=== PATIENT | female | born 1975 | race Two or more races ===

== ENCOUNTER 2023-08-06 10:36 | Inpatient (IN) | payer OTHER ==
[~2023-08-06] VITALS: Ht 172.7 cm; Wt 62.6 kg
[2023-08-06] MEDS ORDERED: KETOROLAC TROMETHAMINE 30 MG VIAL ONE (12:54)
[2023-08-06] MEDS ORDERED: METHYLPREDNISOLONE SOD SUCC 125 MG VIAL ONE (12:54)
[2023-08-06] MEDS ORDERED: KETOROLAC TROMETHAMINE 30 MG VIAL IV ONE (13:00)
[2023-08-06] MEDS ORDERED: METHYLPREDNISOLONE SOD SUCC 125 MG VIAL IV ONE (13:00)
[2023-08-06 13:16] LABS: HEMATOCRIT 29.8 % (36.0-45.00); HEMOGLOBIN 9.9 g/dL (12.0-15.00); MEAN CELL VOLUME 74.7 fL (80.00-100.00); MEAN CORPUSCULAR HEMOGLOBIN 24.9 pg (27.00-32.0); MEAN CORPUSCULAR HGB CONC 33.3 g/dl (32.0-36.0); PLATELET COUNT 259 K/uL (150-450); RED BLOOD COUNT 3.99 M/uL (4.00-6.00); RED CELL DISTRIBUTION WIDTH 17.7 % (11.5-14.5)
[2023-08-06 13:35] LABS: INR 1.09; PARTIAL THROMBOPLASTIN TIME 25.1 SECONDS (22.0-34.0); PROTHROMBIN TIME 11.4 SECONDS (9.0-11.5)
[2023-08-06 13:41] LABS: ALBUMIN 3.4 gm/dL (3.4-5.0); BILIRUBIN TOTAL 0.51 mg/dL (0.3-1.2); CALCIUM 9.3 mg/dL (8.5-10.1); CREATININE SERUM 0.78 mg/dL (0.55-1.02); GFR 79.87; GLOBULINA 3.4 G/DL (2.4-3.5); POTASSIUM 3.84 mEq/L (3.5-5.1); TOTAL PROTEIN 6.8 gm/dL (6.4-8.2)
[2023-08-06] MEDS ORDERED: MORPHINE SULFATE 4 MG/ML VIAL IV PRN (14:45)
[2023-08-06] MEDS ORDERED: ONDANSETRON HCL 4 MG in 0.9 % SODIUM CHLORIDE 50 ML IV PRN (19:45)
[2023-08-06] MEDS ORDERED: 0.9 % SODIUM CHLORIDE 1,000 ML IV SCH (19:45)
[2023-08-06] MEDS ORDERED: ACETAMINOPHEN 500 MG GEL..CAP PO PRN (19:45)
[2023-08-06] MEDS ORDERED: MORPHINE SULFATE 2 MG/ML CARTRIDGE IV SCH (20:00)
[2023-08-06] MEDS ORDERED: MORPHINE SULFATE 4 MG/ML CARTRIDGE IV PRN (20:00)
[2023-08-06 21:31] LABS: PH,URINE 5.5 (5.0-8.0); URINE APPEARANCE Cloudy; URINE BILIRRUBIN Negative (NEGATIVE); URINE BLOOD Moderate; URINE COLOR Yellow; URINE GLUCOSE Negative (NEGATIVE); URINE LEUKOCYTE Negative; URINE NITRATE Negative; URINE PROTEIN Negative (NEGATIVE); URINE UROBILINOGEN 0.2 E.U./dl
[2023-08-06 21:34] LABS: URINE BACTERIA 31.4 uL (0.0-1933); URINE EPITHELIAL CELLS 13.8 uL (0.0-38.8); URINE RBC 54.2 uL (0.0-20.8)
[2023-08-06 21:53] LABS: URINE WBC 1.6 uL (0.0-23.2)
[2023-08-07] MEDS ORDERED: FAMOTIDINE/PF 20 MG in 0.9 % SODIUM CHLORIDE 8 ML IV PUSH SCH (09:00)
[2023-08-07] MEDS ORDERED: METRONIDAZOLE/SODIUM CHLORIDE 500 MG/100 ML PIGGYBACK IV ONE (10:18)
[2023-08-07] MEDS ORDERED: CEFTRIAXONE SODIUM 2,000 MG VIAL ONE (10:18)
[2023-08-07] MEDS ORDERED: LIDOCAINE HCL 1%/EPINEPHRINE 20ML VIAL IJ ONE (13:16)
[2023-08-07] MEDS ORDERED: DIBUCAINE 30 GM TUBE ONE (13:16)
[2023-08-07] MEDS ORDERED: BUPIVACAINE HCL/MPF 0.5% 30ML VIAL ONE (13:16)
[2023-08-07] MEDS ORDERED: HEMOSTATIC MATRIX 1 KIT KIT TOP ONE (13:17)
[2023-08-07] MEDS ORDERED: DIPHENHYDRAMINE HCL 50 MG/ML VIAL 1ML ONE (14:28)
[2023-08-07] MEDS ORDERED: TAMSULOSIN HCL 0.4 MG CAP PO NR (16:15)
[2023-08-07] MEDS ORDERED: OXYC1TAB9 PO (16:19)
== END 2023-08-07 20:15 | disposition home or self-care (01) | DRG 348 ==
LOC: ER 10:37 → SURG 19:55 → SEC-K 19:55 → O/R 08-07 08:26 → SURG 08-07 13:34
PROVIDERS: General Practice; ADMIT Internal Medicine; ATTEND Internal Medicine
PROC: 06BY0ZC Excision of Hemorrhoidal Plexus, Open Approach (ICD-10-PCS; principal; 2023-08-06)
PROC: 06LY7CC Occlusion of Hemorrhoidal Plexus with Extraluminal Device, Via Natural or Artificial Opening (ICD-10-PCS; 2023-08-06)
PROC: 0DBQ7ZZ Excision of Anus, Via Natural or Artificial Opening (ICD-10-PCS; 2023-08-06)
PROC: 3E0T3BZ Introduction of Anesthetic Agent into Peripheral Nerves and Plexi, Percutaneous Approach (ICD-10-PCS; 2023-08-06)
DX: K64.4 Residual hemorrhoidal skin tags (principal); K62.5 Hemorrhage of anus and rectum; K64.8 Other hemorrhoids; K62.89 Other specified diseases of anus and rectum; K64.3 Fourth degree hemorrhoids; K64.5 Perianal venous thrombosis; Z20.822 Contact with and (suspected) exposure to COVID-19